=== PATIENT | female | born 2000 ===

== ENCOUNTER 2023-04-29 03:20 | Inpatient (IN) | payer MEDICAID, SELFPAY ==
[2023-04-29] VITALS (13 sets, daily range): BP systolic 108–131; BP diastolic 57–85; PULSE 65–77; RESP 16–22; TEMP 36.4–37; O2SAT 96–100
[2023-04-29] MEDS: Azithromycin 500 MG VIAL (03:38)
[2023-04-29] MEDS: ceFAZolin 2 GM/50 ML BAG 100 GM (03:45)
[2023-04-29] MEDS: Lactated Ringers 1,000 ML 30 ML IV (03:49)
--- NOTE | 2023-04-29 04:16 | PLAC_PTH ---
PATIENT: Hattie Dave LOC: OBS U#:[id number] AGE/SX: 22/F ROOM: OBS.304 RE04/29/[address]: Lisa Earzo DO : 2000 BED: A DIS: 04/29/2023 SPEC #: [id number] RECD: 04/29/23 11:58 STATUS: NBA REQ #: [id number] LOBITO: 04/29/23 04:[address]: Lisa Erazo DEPT: Surgical Specimen RECD BY: Padmini Cano Tissues: 1 - PLACENTA (3RD TRIMESTER) Procedures: GROSS AND MICRO LEVEL 5 Comments: [id number]
[2023-04-29] MEDS: Bupivacaine 0.25% Pres-Free 30 ML VIAL (04:29)
--- NOTE | 2023-04-29 04:35 | DI.RAD_ITS ---
Exam(s) XR ABDOMEN FLAT PLATE EXAM: XR ABDOMEN FLAT PLATE CLINICAL HISTORY: rule out RSI. TECHNIQUE: 2D digital imaging was performed. COMPARISON: No exams were available for comparison FINDINGS: Large structure over the right side is presumed to be external to the patient. There is no radiopaqu e foreign body in the field of view of this image. Bowel gas pattern is nonspecific in the supine position. No abnormal calcifications noted. Regional bones unremarkable. No fractures evident. No incidental osseous lesions. IMPRESSION: No radiopaque retained surgical instrument evident DATA REPOSITORY: RADIATION DOSE DELIVERED:
--- NOTE | 2023-04-29 05:18 | DI.VRAD_ITS ---
Addendum created by Rodger Garcia MD on 04/29/2023 5:21:08 AM EST: Findings discussed with Saray RUIZ at time of interpretation. Initial report created on 04/29/2023 5:18:11 AM EST: PROCEDURE INFORMATION: Exam: XR Abdomen Exam date and time: 04/29/2023 4:49 AM Age: 22 years old Clinical indication: Study performed for possible retained surgical item in a patient currently under anesthesia. Surgical item - [id number] or. [id number] ob. Screening exam; Post surgical status; Post ; Prior surgery; Surgery date: Post-operative (0-2 days); Patient HX: R/O rsi TECHNIQUE: Imaging protocol: Radiologic exam of the abdomen. Views: Frontal supine view of the abdomen. 1 View. COMPARISON: No relevant prior studies available. FINDINGS: Tubes, catheters and devices: Large man made structure projects in varying positions over the right hemithorax on multiple views and is presumably external to the patient. Otherwise no evidence of retained surgical instrument. Gastrointestinal tract: Unremarkable nonobstructive bowel gas pattern. Bones/joints: Unremarkable. IMPRESSION: 1. Large man made structure projects in varying positions over the right hemithorax on multiple views and is presumably external to the patient. Otherwise no evidence of retained surgical instrument. 2. Unremarkable nonobstructive bowel gas pattern. Dictated and Authenticated by: Rodger Garcia MD. Ordering:LUPIS Gonzalez MD
--- NOTE | 2023-04-29 05:32 | W.ANESPOSTOP ---
Postoperative Evaluation Date, Time and Location Date Performed: 04/29/23 Time Performed: 05:32 Patient Location: Obstetrics Vital Signs Most Recent Imported Vital Signs: Most Recent Vital Signs Temp Pulse Resp BP Pulse Ox 36.6 C 67 16 111/57 L 100 04/29/23 05:28 04/29/23 05:28 04/29/23 05:28 04/29/23 05:28 04/29/23 05:28 Pain Score Most Recent Pain Score: Most Recent Pain Score Pain Level 0 04/29/23 05:28 Assessment Mental Status: Awake (Alert & Oriented to Patient Baseline) Airway and Respiratory Function: Patent airway with normal (patient baseline) respiratory exam Cardiovascular Function: Hemodynamically Stable Hydration Status: Adequately Hydrated Nausea & Vomiting: No Nausea or Vomiting Pain: Pain is tolerable per patient Peripheral Nerve Block: Patient did not receive a nerve block Postoperative Comments:: Discussed the anesthesia that occurred. Questions answered.
--- NOTE | 2023-04-29 05:34 | W.PM.OBCSECT ---
Date of service: 04/29/23 Time of Service: 05:34 Operative Note Operative Note Delivery Method: Unscheduled STAT: Yes and Primary [id number]>37 Weeks: No DATE OF PROCEDURE: 04/29/23 PRE-OP DIAGNOSES: Labor, twins 32 5/7, breech, complete PROCEDURE: Primary Low transverse section SURGEON: Lisa Erazo [employer] Teacher: Lacie Romero Estimated blood loss (mL): 550 Pathology: other (placenta) Complications: None Patient was transported to: PACU Patient's condition: stable Indications: Twins, labor, 32 weeks 5 days, presenting twin complete breech, completely dilated, spontaneous rupture of membranes, care elsewhere, growth restriction Findings: Twin gestation, presenting fetus, breech, complete. Second fetus, cephalic. Normal tubes, ovaries, uterus. Procedure Description: Shortly after presentation to the center, upon initial evaluation, due to gestation, and presenting twin with discordant growth, breech, decision was made for emergent delivery. Verbal consultation and consenting was performed with patient's understanding's of the risk, benefits, and alternatives of delivery included but not limited to infection, bleeding, injury to surrounding organs, need for general anesthesia, risk of thromboembolic events. All questions were answered to the best my ability. Patient was taken emergently to the surgical suite where she was placed in the dorsal supine position. Pneumatic compression stockings had been placed, Mazariegos catheter inserted for continuous bladder drainage, patient received IV antibiotic therapy. After administration of general anesthesia via endotracheal intubation, Pfannenstiel skin incision was made and carried briskly down to the underlying fascia which was incised in a transverse fashion. Rectus muscles were split in the midline and the peritoneum entered sharply. Bladder blade was inserted and a scalpel was used to create the bladder flap initially followed by a low transverse uterine incision and a well-developed lower uterine segment. Nonpresenting baby delivered cephalically through the uterine incision. There was no evidence of nuchal cord. A three-vessel cord was noted, clamped x 2 and cut and the was handed off to the waiting pediatric team. Presenting baby who was in the michael breech presentation delivered immediately there after, again no evidence of nuchal cord. Three-vessel cord noted, clamped x 2, and cut and the was handed off to the waiting pediatric team. At this point attempts at segment of cord for gases and cord blood sample was obtained from both umbilical cords. The placenta is delivered spontaneously and was sent to pathology for examination. At this point the uterus was exteriorized and cleared of all clot and debris. Uterine incision closed using 0 Monocryl suture with initial layer being running locked, second being imbricating. The uterus was then returned to the abdomen and abdomen irrigated with copious amounts of normal saline. Uterine incision was inspected and noted to be hemostatic. The fascial incision was then closed using 0 Vicryl suture in a running fashion. Subcutaneous tissue was infiltrated with quarter percent Marcaine and then reapproximated with 3-0 Vicryl suture. Skin edge was reapproximated with 4-0 undyed Monocryl and Steri-Strips and a sterile dressing were placed. Postoperative x-ray was performed due to limited counts prior to emergent surgery. X-ray is appropriate, no retained foreign bodies noted. Patient was then taken to the postanesthesia care unit in stable condition with a Mazariegos catheter draining clear yellow urine. Uterus was firm and 3 cm below the umbilicus. Findings: As above, delivery of twin gestation, female infants. Normal tubes, ovaries, uterus EBL: 550 mL Fluids: Crystalloid per anesthesia Complications: None apparent Twin A: None presenting . Apgars 9, 9. Weight 1635 g-female Twin B: Presenting . Apgars 8, 1. Weight 1330 g-female
--- NOTE | 2023-04-29 06:17 | HPE_ITS ---
Date of service: 04/29/23 Time of Service: 06:17 Assessment and Plan Assessment and plan (1) Twin gestation in third trimester: Status: Acute Assessment and plan: Patient was transported by ambulance to our facility with a twin gestation at 32 weeks and 5 days with spontaneous rupture of membranes, in active labor, with a michael breech presentation, completely dilated. She had known discordant growth, and plan to transfer of care to the [facility] for maternal- medicine consultation, and delivery. In light of the presentation, however she was taken for emergent section where she underwent a primary low-transverse section under general anesthesia. She had delivery of viable twin female infants a, the nonpresenting fetus was delivered with Apgars 9 and 9 and a weight of 1635 g, B, presenting twin was delivered from the michael breech presentation with Apgars 8 and 8 weighing 1330 g. Elsie was present for delivery. In light of the of gestation, transport arrangements were made to [facility] for intensive care services. Transportation of the mother will also be performed, with the accepting service being maternal- medicine, care of (2) Prolonged spontaneous rupture of membranes: Status: Acute Assessment and plan: Spontaneous rupture of membranes, with unknown group B strep status. Patient received preoperative Ancef, 2 g and Zithromax, 500 mg (3) Breech presentation: Status: Acute Assessment and plan: Presenting twin, michael breech, completely dilated (4) labor in third trimester: Status: Acute (5) History of chlamydia infection: Status: Acute Assessment and plan: History of chlamydia, treated during OB-HPI Labor/Delivery History of Present Illness Reason for Visit: labor Chief Complaint: Uterine Contractions (Regular, every 3 minutes); Suspected Rupture of Membranes (Gush of fluid at 0000) , Associated Signs and Symptoms of Suspected ROM: Gush of fluid. TRINO Calculator Estimated Delivery Date Method WG Current Estimate 06/19/23 Manual Infant Delivery Date-Baby A 04/29/23 32w 5d Delivery Date-Baby B 04/29/23 32w 5d Comments: Patient presented via ambulance as we are the closest facility. Patient is a 22-year-old 3 para 1-0-1-1 with a twin gestation at 32 weeks and 5 days. care had been at [facility]. She had a known twin gestation with discordant growth. The plan was for transfer of care to [facility] for maternal- medicine, and the remainder of her care. She had a large gush of clear fluid at approximately midnight with onset of uterine contractions. She called EMS and was transported to the nearest facility. Upon presentation she was noted to be completely dilated, with twin a presenting in a michael breech presentation. Heart tones were obtained. Notification for my presentation to the hospital had been made, anesthesia notified, second drivers license examiner, pediatrics, and the OR team for delivery History of Present Expected Delivery Route/Plan Emergency section Specific Issues/Plan 1. Twin gestation 2. Care at outlying facility 3. Spontaneous rupture of membranes 4. labor 5. Group B strep unknown 6. Chlamydia positive during 7. Mal presentation 8. Discordant growth 9. Smoker Narrative: Patient is a 22-year-old 3 para 1-0-1-1 with a history of a term delivery, spontaneous vaginal in 2020. She had a subsequent spontaneous miscarriage in September 2022. [facility] where she was diagnosed with a twin gestation. She presented via EMS after spontaneous rupture of membranes at midnight for clear fluid at onset of painful, regular contractions. She was taken to the closest facility which would be us as the receiving hospital. Upon presentation, twin A was noted to be breech, in the vagina, and fully dilated. Heart tones were present for both a and B babies. In light of the emergent situation, anesthesia, pediatrics, OR crew were all notified and patient was taken to the operating room for further evaluation and emergent delivery. Verbal consultation and consent was performed for all possible scenarios which would be either vaginal delivery or section. Patient had a planned section due to discordant growth with her twin gestation. She understood the risks, benefits, and alternatives of section including infection, bleeding, injury to surrounding organs, risk of anesthesia. Again verbal consenting had been performed. She underwent her emergent section under general anesthesia for delivery of viable female infants. First baby delivered, was from the cephalic position and was not the presenting twin. A baby had Apgars of 9 and 9 and weight of 1635 g. Twin B delivered from the michael breech presentation with Apgars of 8 and 8 and 1330 g. Informed Consent Informed Consent: Section Delivery (Verbal consent obtained) and Risk,Benefits,Alternatives Discussed Review of Systems All systems reviewed & are unremarkable except as noted in HPI and below Constitutional Constitutional: Reports as per HPI Comments: Painful regular contractions Cardiovascular Cardiovascular: Reports system reviewed and no additional complaints, except as documented Respiratory Respiratory: Reports system reviewed and no additional complaints, except as documented Gastrointestinal Gastrointestinal: Reports system reviewed and no additional complaints, except as documented Neurologic Neurologic: Reports system reviewed and no additional complaints, except as documented PFSH All Active Problems (Updated 04/29/23 @ 06:29 by Lisa Erazo DO) History of chlamydia infection (Acute) labor in third trimester (Acute) Breech presentation (Acute) Prolonged spontaneous rupture of membranes (Acute) Twin gestation in third trimester (Acute) Social History Smoking risk assessment performed?: No History History 3 Para 1 Hx # Term Pregnancies Multiple births Hx # Pregnancies Ectopic pregnancies AB induced Hx Number of Living Children AB spontaneous Meds Allergies and Home Medications Allergies Allergy/AdvReac Type Severity Reaction Status Date / Time No Known Allergies Allergy Verified 04/29/23 05:32 Allergy/Medication Comments:: No known drug allergies Exam Physical Exam Vital signs: Temp Pulse Resp BP Pulse Ox 97.9 F 67 16 117/78 100 04/29/23 05:28 04/29/23 05:46 04/29/23 05:46 04/29/23 05:46 04/29/23 05:46 Vital Signs Reviewed: Yes Constitutional Comments: Upon presentation patient was in moderate distress due to painful irregular uterine contractions. Postoperatively, she is feeling well with good pain control. Detailed Labor and Delivery Exam Renner Score: Cervical Points Exam 0 1 2 3 Dilation Closed 1-2cm 3-4 cm 5-6cm Effacement 0-30% 40-50% 60-70% 80% Consistency Firm Medium Soft Station -3 -2 -1,0 +1,+2 Position Posterior Mid Anterior Comments: Upon presentation to the center, patient was noted to be completely dilated, with the breech in the vagina Fetus A Date of Membrane Rupture: 04/29/23 Time of Membrane Rupture: 00:00 Respiratory Exam Respiratory Exam: Normal Cardiovascular Exam Cardiovascular Exam: Normal Abdominal Exam Abdominal Exam: Normal Results Results Group Beta Strep: Not Done Blood Type: O+ Rubella Status: Immune Varicella Immunity: Nonimmune Risk Assessment Risks Reviewed Risks Reviewed Upon Admission: Yes
--- NOTE | 2023-04-29 06:44 | W.PM.OBDISCH ---
Date of service: 04/29/23 Time of Service: 06:44 DS: Diagnosis Discharge Diagnosis (1) Twin gestation in third trimester: Status: Acute Asessment and Plan: Status post emergent section at 32 weeks and 5 days due to spontaneous rupture of membranes, labor, michael breech presentation. , postoperative care to be managed at [facility]. Patient transferred due to proximity of her twin girls who will be in the intensive care unit Mom has blood type of O+, antibody negative varicella nonimmune rubella immune hepatitis B negative chlamydia screen was positive and treated. 1 hour glucose tolerance test was 102. First trimester screen normal (2) Prolonged spontaneous rupture of membranes: Status: Acute (3) Breech presentation: Status: Acute (4) labor in third trimester: Status: Acute (5) History of chlamydia infection: Status: Acute Discharge Plan Disposition Patient Disposition: Transfer-Acute Inpatient Care Specific Acute Inpt Facility: [facility] Condition: Good Discharge Details Reason For Visit: emergent section Admit Date/Time: 04/29/23 03:20 Admit Provider: Lisa Erazo Attending Provider: Lisa Erazo Hospital Course Hospital Course: Patient presented via EMS to our facility at 32 weeks, 5 days, twin gestation, ruptured, labor, complete, breech. care complicated by twins, growth restriction, Mal presentation with intent of transfer to a tertiary care facility. With onset of labor, we were the closest facility where the patient presented. Due to the fact that she had a 32 weeks gestation, complete, and breech with fear of head entrapment, decision was made for emergent section. She delivered a viable twin infants, female, A- Apgars 9, 9, weight 1635 g. B- Apgars 8, 8, weight 1330 g. Due to prematurity, arrangement was made for transfer to intensive care unit at [facility]. Patient will be transferred to the service of maternal- medicine for ongoing care, and proximity to her daughters. Her section was uncomplicated, EBL 550 mL. Stable condition post delivery. Stable for transfer to [facility], receiving physician Dr. Hogue Discharge Instructions Activity:: rst Equipment/Supplies:: No Equipment Needed Diet:: As Tolerated OB:DS Summary Summary Episiotomy Description: None Laceration Description: None Laceration Extension: N/A Contraception Discussed Contraception Discussed: No, [place] Infant Gender-Baby A: Female weight: 3 lb 9.497 oz Infant Gender-Baby B: Female Weight-Baby B: 2 lb 14.914 oz Status at Discharge Functional status at discharge: bed bound (Immediate , postop) Overall status at discharge: patient is progressing back to baseline Mental Status: mental status grossly normal Speech and Movement: speech and movement normal Mood: congruent mood Affect: normal affect Quality:SDOH Health Related Social Needs: No Data to Display Exam Physical Exam Vital signs: Temp Pulse Resp BP Pulse Ox 97.5 F L 67 16 115/74 100 04/29/23 06:15 04/29/23 06:15 04/29/23 06:15 04/29/23 06:15 04/29/23 06:15 Narrative: See physical exam from admission dated 04/29/2023. PFSH All Active Problems (Updated 04/29/23 @ 06:29 by Lisa Erazo DO) History of chlamydia infection (Acute) labor in third trimester (Acute) Breech presentation (Acute) Prolonged spontaneous rupture of membranes (Acute) Twin gestation in third trimester (Acute) Social History Smoking risk assessment performed?: No History History 3 Para 1 Hx # Term Pregnancies Multiple births Hx # Pregnancies Ectopic pregnancies AB induced Hx Number of Living Children AB spontaneous DS: Data Vitals/I&O Vitals and I&O: Vital Signs Temperature 97.5 F L 04/29/23 06:15 Temperature Source Tympanic 04/29/23 06:15 Pulse 67 04/29/23 06:15 Respiratory Rate 16 04/29/23 06:15 Blood Pressure 115/74 04/29/23 06:15 Blood Pressure Mean 91 04/29/23 05:46 Pulse Oximetry 100 04/29/23 06:15 Oxygen Delivery Method Room Air 04/29/23 06:15 Oxygen Flow Rate 0 04/29/23 06:15 Pain Level 0 04/29/23 05:28 Intake & Output 04/28/23 04/28/23 04/29/23 11:59 23:59 11:59 Intake Total 500 / 500 Output Total 550 / 550 Balance -50 / -50 Intake: IV 500 / 500 Oral 0 / 0 Output: Emesis 0 / 0 Estimated Blood Loss 550 / 550 Other: Urine Color Light Hattie Urine Appearance Cloudy Emesis Description None
[2023-04-29] MEDS: Normal Saline Flush 10 ML SYR IVP (07:01)
[2023-04-29] MEDS: HYDROmorphone 2 MG/ML SYR 1 MG IVP ×2 (07:01→10:35)
--- NOTE | 2023-04-29 07:10 | NUR.NOTE ---
Nursing Note: Phone call from ER at approx 3am that high risk mother early gestation on the way. Two RNs set up room and called providers in. Patient arrived approx 330am appearing very uncomfortable screaming and anxious. History obtained come to find out mother is 32 weeks and 5 days carrying twin girls. Attempted to place mother on monitor. Baby A's FHR was in the 140s. Both RNs were unable to get Baby B's FHR. Vaginal exam performed by Mandi WONG and mom found to be fully dilated with breech presentation. MD and receiving lead were already on the way and we quickly got patient ready and to the OR. Initial incision at 4am and both liveborn infants delivered at 404am.
[2023-04-29] MEDS: Oxytocin/Normal Saline 30 UNIT/500 ML BAG 95 UNITS IV (08:12)
[2023-04-29] MEDS: Ketorolac 30 MG/ML VIAL 15 MG IVP (10:11)
--- NOTE | 2023-04-29 10:54 | NUR.NOTE ---
at approximately 1006 am RN gave report to [facility] RNNursing Note:
== END 2023-04-29 10:55 | disposition short-term general hospital (02) | DRG 788 ==
PROVIDERS: Admitting Provider Obstetrics & Gynecology; Visit Provider Obstetrics & Gynecology
PROC: 10D00Z1 Extraction of Products of Conception, Low, Open Approach (ICD-10-PCS; CPT 59514; principal; 2023-04-29 03:30)
DX: O60.14X0 Preterm labor third trimester with preterm delivery third trimester, not applicable or unspecified (principal); Z37.2 Twins, both liveborn; O32.1XX2 Maternal care for breech presentation, fetus 2; O30.043 Twin pregnancy, dichorionic/diamniotic, third trimester; Z3A.32 32 weeks gestation of pregnancy; O99.334 Smoking (tobacco) complicating childbirth; F17.210 Nicotine dependence, cigarettes, uncomplicated; O42.913 Preterm premature rupture of membranes, unspecified as to length of time between rupture and onset of labor, third trimester
CPT/HCPCS: 59514; 74018; 88307; J0131; J0330; J0456; J0665; J0690; J1100; J1170; J1885; J2250; J2405; J2704; J3010